=== PATIENT | female | born 1965 | race Caucasian/White ===

== ENCOUNTER → 2016-08-02 | Outpatient (CLI) | payer OTHER, BC | LOC: CIMAGING 12:32 | PROVIDERS: ATTEND Family Medicine | DX: M79.89 Other specified soft tissue disorders (principal) | CPT/HCPCS: 73610-PO ==

== ENCOUNTER → 2017-06-23 | Outpatient (CLI) | payer OTHER, BC | LOC: FIMAGING 13:55 | PROVIDERS: ATTEND Surgery | DX: N63.21 Unspecified lump in the left breast, upper outer quadrant (principal) ==

== ENCOUNTER → 2017-07-28 | Outpatient (CLI) | payer OTHER, BC | LOC: BHFA 10:00 | PROVIDERS: ATTEND Internal Medicine Cardiovascular Disease | DX: Z51.11 Encounter for antineoplastic chemotherapy (principal) ==

== ENCOUNTER → 2017-08-04 | Outpatient (CLI) | payer OTHER, BC ==
[~2017-08-04] MED LIST: GADOBUTROL 10 ML VIAL IVP ONE
== END ==
LOC: FIMAGING 08:17
PROVIDERS: ATTEND Internal Medicine Hematology & Oncology
DX: C50.112 Malignant neoplasm of central portion of left female breast (principal); N63.10 Unspecified lump in the right breast, unspecified quadrant
CPT/HCPCS: 0159T; A9585; C8908

== ENCOUNTER → 2017-08-07 | Outpatient (CLI) | payer OTHER, BC | LOC: FIMAGING 11:02 | PROVIDERS: ATTEND Surgery | DX: Z45.2 Encounter for adjustment and management of vascular access device (principal); J98.11 Atelectasis ==

== ENCOUNTER → 2017-08-23 | Outpatient (CLI) | payer OTHER, BC | LOC: FIMAGING 15:30 | PROVIDERS: ATTEND Internal Medicine Hematology & Oncology | DX: N83.202 Unspecified ovarian cyst, left side (principal); C50.112 Malignant neoplasm of central portion of left female breast ==

== ENCOUNTER 2017-09-14 07:44 | Outpatient (CLI) | payer OTHER, BC ==
[2017-09-14] MEDS ORDERED: GLUCAGON HCL 1 MG VIAL IVP PRN (08:03)
[2017-09-14] MEDS ORDERED: PROTAMINE SULFATE 50 MG/5 ML VIAL IVP PRN (08:03)
[2017-09-14] MEDS ORDERED: NALOXONE HCL 0.4 MG/ML INJ IVP PRN (08:03)
[2017-09-14] MEDS ORDERED: fentaNYL 100 MCG/2 ML INJ IVP PRN (08:03)
[2017-09-14] MEDS ORDERED: FLUMAZENIL 0.5 MG/5 ML MDV IVP PRN (08:03)
[2017-09-14] MEDS ORDERED: MIDAZOLAM 2 MG/2 ML VIAL IVP PRN (08:03)
[2017-09-14] MEDS ORDERED: MEPERIDINE 25 MG/ML SYR IVP PRN (08:03)
[2017-09-14] MEDS ORDERED: HEPARIN 10,000 UNIT/10 ML MDV (1,000 UNIT/ML) IVP PRN (08:03)
[2017-09-14] MEDS ORDERED: ALTEPLASE 2 MG VIAL IVP PRN (08:03)
[2017-09-14] MEDS ORDERED: NS 1,000 ML IV SCH (08:15)
[2017-09-14] MEDS ORDERED: GADOBUTROL 10 ML VIAL IVP ONE (08:41)
[2017-09-14] MEDS ORDERED: LIDOCAINE 1% 5 ML SDV ONE (08:42)
[2017-09-14] MEDS ORDERED: NA BICARBONATE 50 MEQ/50 ML VIAL ONE (08:42)
[2017-09-14] MEDS ORDERED: BUPIVACAINE 0.5% 30 ML SDV ONE (08:42)
--- NOTE | 2017-09-14 09:21 | PDGENHP ---
History & Physical Chief Complaint: abnl breast MRI Cardiorespiratory Assessment: lungs clear, RRR
--- NOTE | 2017-09-14 09:21 | PDPROPOC ---
Sedation Plan of Care Sedation Plan of Care: vital signs stable, mental status noted, patient educated of risks, benefits, alternatives, patient can tolerate sedation ASA Classification: ASA 1 Planned drugs: fentanyl, midazolam Mallampati Score: Class 2 Mallampati Reference Image: Patient passed 3-3-2 rule?: Yes
[2017-09-14] MEDS ORDERED: ONDANSETRON 4 MG/2 ML VIAL ONE ×3 (10:38→11:02)
[2017-09-14] MEDS ORDERED: ONDANSETRON 4 MG/2 ML VIAL IVP ONE (11:30)
[2017-09-14] MEDS ORDERED: ACETAMINOPHEN 325 MG TAB PO PRN (11:41)
[2017-09-14] MEDS ORDERED: ONDANSETRON 4 MG/2 ML VIAL IVP PRN (11:41)
[2017-09-14 12:59] VITALS: BP 110/74
== END 2017-09-14 11:45 | disposition home or self-care (01) ==
LOC: FIMAGING 07:44
PROVIDERS: ATTEND Internal Medicine Hematology & Oncology
PROC: 0HBT3ZX Excision of Right Breast, Percutaneous Approach, Diagnostic (ICD-10-PCS; principal; 2017-09-14)
DX: N60.11 Diffuse cystic mastopathy of right breast (principal); Z85.3 Personal history of malignant neoplasm of breast
CPT/HCPCS: 19085; 77065; 88305; 99152; 99153; A9585; J2250; J2405; J3010; J2310

== ENCOUNTER → 2017-12-15 | Outpatient (CLI) | payer OTHER, BC | LOC: FIMAGING 09:52 | PROVIDERS: ATTEND Internal Medicine Hematology & Oncology | DX: Z09 Encounter for follow-up examination after completed treatment for conditions other than malignant neoplasm (principal); Z98.890 Other specified postprocedural states; N83.292 Other ovarian cyst, left side; C50.919 Malignant neoplasm of unspecified site of unspecified female breast ==

== ENCOUNTER → 2017-12-15 | Outpatient (CLI) | payer OTHER, BC | LOC: BHFA 13:15 | PROVIDERS: ATTEND Internal Medicine Cardiovascular Disease | DX: Z51.11 Encounter for antineoplastic chemotherapy (principal) ==

== ENCOUNTER 2018-01-05 06:32 | Day surgery (SDC) | payer OTHER, BC ==
[2018-01-05] MEDS ORDERED: LR 1,000 ML IV ONE (06:51)
[2018-01-05] MEDS ORDERED: LIDOCAINE 1% 300 MG/30 ML SDV ONE ×2 (07:51→09:09)
[2018-01-05] MEDS ORDERED: MIDAZOLAM 2 MG/2 ML VIAL IVP ONE ×2 (08:42→09:20)
[2018-01-05] MEDS ORDERED: LIDOCAINE/PRILOCAINE 1 EACH CRTUBE TP ONE (08:53)
--- NOTE | 2018-01-05 08:55 | PDHPUP ---
History & Physical Update H&P update statement: This history and physical update is based on an assessment of the patient which was completed after admission or registration (within 24 hours), but prior to the surgery/procedure. H&P update: H&P reviewed & patient examined, changes noted (No change in condition. Will forego needle loc. Continue open R breast bx and left partial mastectomy with L SLNBx. Port will also be removed)
[2018-01-05] MEDS ORDERED: DIAZEPAM 5 MG TAB PO ONE (08:56)
[2018-01-05] MEDS ORDERED: BUPIVACAINE 0.5% 30 ML SDV ONE (09:09)
--- NOTE | 2018-01-05 09:16 | PDANEPAE ---
ANE History of Present Illness Left partial mastectomy with SLN. Right breast Bx. port removal ANE Past Medical History - Cardiovascular History Hx Hypertension: No Hx Arrhythmias: No Hx Chest Pain: No Hx Coronary Artery / Peripheral Vascular Disease: No Hx CHF / Valvular Disease: No Hx Palpitations: No Cardiovascular History Comment: rheumatic fever as child; - Pulmonary History Hx COPD: No Hx Asthma/Reactive Airway Disease: Yes Hx Recent Upper Respiratory Infection: No Hx Oxygen in Use at Home: No Hx Sleep Apnea: No Sleep Apnea Screening Result - Last Documented: Negative Pulmonary History Comment: "emotional asthma"; - Neurologic History Hx Cerebrovascular Accident: No Hx Seizures: No Hx Dementia: No - Endocrine History Hx Diabetes: No Endocrine History Comment: nodule on thyroid - Renal History Hx Renal Disorders: No - Liver History Hx Hepatic Disorders: No - Neurological & Psychiatric Hx Hx Neurological and Psychiatric Disorders: Yes Neurological / Psychiatric History Comment: depression; anxiety; insomnia; panic attacks; - Cancer History Hx Cancer: Yes Cancer History Comment: L breast CA; - Congenital Disorder History Hx Congenital Disorders: No - GI History Hx Gastrointestinal Disorders: Yes Gastrointestinal History Comment: GERD; - Other Health History Other Health History: denies - Chronic Pain History Chronic Pain: Yes (10/10 B legs) - Surgical History Prior Surgeries: L knee; hysterectomy partial; port placement; ANE Review of Systems Review of Systems: - Exercise capacity METS (RN): 4 METS - Systems Respiratory: Reports: wheezing (Emotional asthma FEV1 58%) Genitourinary: Reports: no symptoms Skin: Reports: no symptoms ANE Patient History - Allergies Allergies/Adverse Reactions: aspirin Allergy (Verified 12/15/17 14:44) EYES ITCH AND FACIAL FLUSHING Penicillins Allergy (Verified 09/14/17 13:06) Rash - Home Medications Home medications: home medication list seen and reviewed Home Medications: Aleve 220 MG (*) 440 mg PO PRN PRN 09/13/17 [Last Taken 09/13/17] Protonix 40mg (*) 40 mg PO DAILY 09/13/17 [Last Taken 01/04/18] Seroquel 25 mg (*) 25 mg PO HS 09/13/17 [Last Taken 01/04/18] Xanax 0.25 mg PO HS 09/13/17 [Last Taken 01/04/18] - NPO status NPO Status: no food or drink >8 hours NPO Since - Liquids (Date): 01/04/18 NPO Since - Liquids (Time): 22:00 NPO Since - Solids (Date): 01/04/18 NPO Since - Solids (Time): 23:30 - Anes Hx Anes Hx: no prior problems - Smoking Hx Smoking Status: Never smoked - Family Anes Hx Family Hx Anesthesia Complications: denies ANE Labs/Vital Signs - Vital Signs Blood Pressure: 104/73 Heart Rate: 88 Respiratory Rate: 16 O2 Sat (%): 95 Height: 160.02 cm Weight: 102.512 kg ANE Physical Exam - Airway Neck exam: FROM Mallampati Score: Class 2 Mouth exam: normal dental/mouth exam - Pulmonary Pulmonary: no rales or rhonchi, clear to auscultation, other (Increased exp phase) - Cardiovascular Cardiovascular: regular rate and rhythym, no murmur, rub, or gallop - ASA Status ASA Status: III ANE Anesthesia Plan Anesthesia Plan: GA w LMA
[2018-01-05] MEDS ORDERED: SCOPOLAMINE HYDROBROMIDE 1 MG/3 DAYS PATCH TD SCH (09:30)
[2018-01-05] MEDS ORDERED: METOCLOPRAMIDE 10 MG/2 ML VIAL ONE (10:16)
[2018-01-05] MEDS ORDERED: PROPOFOL/EMULSION 500 MG/50 ML BOTTLE IV ONE (10:16)
[2018-01-05] MEDS ORDERED: fentaNYL 250 MCG/5 ML INJ ONE (10:16)
[2018-01-05] MEDS ORDERED: GLYCOPYRROLATE 0.2 MG/1 ML VIAL ONE (10:16)
[2018-01-05] MEDS ORDERED: DEXAMETHASONE 4 MG/ML VIAL ONE (10:16)
[2018-01-05] MEDS ORDERED: PROPOFOL 200 MG/20 ML VIAL ONE ×2 (10:46→11:54)
[2018-01-05] MEDS ORDERED: PHENYLEPHRINE HCL 100 MCG/ML SYR ONE (11:19)
[2018-01-05] MEDS ORDERED: oxyCODONE IR 5 MG TAB PO PRN ×2 (12:33→12:48)
[2018-01-05] MEDS ORDERED: ONDANSETRON DISINTEGRATING 4 MG TAB PO PRN (12:33)
--- NOTE | 2018-01-05 12:33 | POSTOPPROG ---
Post Op Note Date of Operation: 01/05/18 Surgeon: Corbin Triplett Agent Broker: Daxa Portillo Anesthesia: LMA Pre-op Diagnosis: L breast cancer, right breast mass Post-op Diagnosis: same Procedure: R port a cath removal, Left Partial mastectomy and SLNBX, R breast exc bx Findings: hot node L axilla 5K Inf/Abcess present in the surg proc area at time of surgery?: No EBL: Minimal Specimen(s): Right breast tissue Left Breast partial mastectomy LAKSHMI Quadrant L SLNBx Rt port removal
[2018-01-05] MEDS ORDERED: HYDROCODONE/APAP 5/325 TAB PO PRN (12:48)
[2018-01-05] MEDS ORDERED: fentaNYL 100 MCG/2 ML INJ IVP PRN (12:48)
[2018-01-05] MEDS ORDERED: HYDROmorphONE/DILAUDID 2 MG/ML INJ IVP PRN (12:48)
[2018-01-05] MEDS ORDERED: NALOXONE HCL 0.4 MG/ML INJ IVP PRN (12:48)
[2018-01-05] MEDS ORDERED: DIAZEPAM 5 MG/ML 1 ML SYR IVP PRN (12:48)
[2018-01-05] MEDS ORDERED: ALBUTEROL 3 ML DEYVIAL IH PRN (12:48)
[2018-01-05] MEDS ORDERED: ONDANSETRON 4 MG/2 ML VIAL IVP PRN (12:48)
[2018-01-05] MEDS ORDERED: ACETAMINOPHEN 500 MG TAB PO PRN (12:48)
--- NOTE | 2018-01-05 12:50 | POSTANESTH ---
Post Anesthetic Evaluation Cardiovascular Status: Normal, Stable Respiratory Status: Similar to Pre-op Cond. Level of Consciousness/Mental Status: Can Participate in Eval Pain Control: Adequate, Prn Tx Ordered Nausea/Vomiting Control: Adequate, Prn Tx Ordered Complications Possibly Related to Anesthesia: None Noted
[2018-01-05] MEDS ORDERED: fentaNYL 100 MCG/2 ML INJ ONE (13:01)
[2018-01-05 14:10] VITALS: BP 122/87
[2018-01-08] MEDS ORDERED: PATCH REMOVAL 1 EA PATCH TD SCH (09:21)
--- NOTE | 2018-01-08 18:04 | GOP ---
DATE OF OPERATION: SURGEON: Corbin Triplett MD MOTORCOACH DRIVER: Daxa Portillo PA-C ANESTHESIA: General LMA anesthesia was used. PREOPERATIVE DIAGNOSIS: 1. Left breast cancer. 2. Right breast mass. POSTOPERATIVE DIAGNOSIS: PROCEDURE PERFORMED: 1. Open right breast biopsy. 2. Left partial mastectomy with sentinel node biopsy. FINDINGS: SPECIMENS: 1. Right breast mass. 2. Left partial mastectomy, long stitch lateral, short stitch superior, double stitch deep. 1. The sentinel nodes, 2 non-sentinel nodes and 1 hot sentinel node were obtained. 3. ESTIMATED BLOOD LOSS: Approximately 25 mL. INDICATIONS: This is a 52-year-old patient who presents to the hospital for elective treatment for r ight breast mass and known left breast cancer. She has had neoadjuvant treatment with HER-2/janeen targ eting of left breast cancer initially measuring over 5 cm, locally advanced. She is here for definit caden treatment. DESCRIPTION OF PROCEDURE: Patient was brought in the operating room after induction of sedation. Sh e had general LMA anesthesia in a supine position. Bilateral chest and breasts were prepped with chl orhexidine and draped out sterilely. Time-out procedure was then performed according to institutiona l standards. The initial addressing is of the right breast and the right breast was then infused with local anesth etic. An incision made at the top of the nipple-areolar complex at approximately 11 o'clock deepened with electrocautery. A mass approximately 1 cm in diameter was removed. It appears benign as a fib roadenoma. This is sent for pathology unoriented. The incision was closed in layers using 3-0 Polys orb and 4-0 Monocryl after ensuring hemostasis. Needle, instrument, and sponge counts were verified to be correct. Attention was then addressed to the left breast. Left sentinel node is initially obtained by going t hrough an incision on the inferior border of the axilla, deepened this with electrocautery. Clavipec jorge alberto fascia was then divided. [place] node was then identified using a gamma probe. After insurin g hot counts of this isolated node, which appears unaffected by cancer, a small node was sent for pat hology, along with several other nodes in the vicinity. The area was ensured to be hemostatic and cl osed in layers using 3-0 my Vicryl and 4-0 Monocryl in a running subcuticular fashion. The left breast was then addressed in the upper outer quadrant. Curvilinear incision was made after infusion of local anesthetic. This is made above the nipple-areolar complex approximately 12 to 3 o' clock. The palpable mass was then completely encircled by creating a skin flap laterally and superio rly, deepened this with electrocautery going down to the chest wall using sharp dissection and electr ocautery. After circumferentially going around the mass, the specimen was marked long stitch lateral short stitch superior, double stitch deep. The area is ensured to be hemostatic. No need for oncop lastic reconstruction was noted. The area was then closed using 3-0 Polysorb and 4-0 Monocryl. Dermabond was applied to all incisions . The patient awakened. LMA removed. She is taken to recovery in stable condition. No immediate c omplications. COMPLICATIONS: There were no complications. /[id number]/MODL
== END 2018-01-05 14:35 | disposition home or self-care (01) ==
LOC: F3EOP 06:32 → EDSTATUS 08:00 → F3EOP 14:35
PROVIDERS: ATTEND Surgery
DX: C50.412 Malignant neoplasm of upper-outer quadrant of left female breast (principal); D24.1 Benign neoplasm of right breast
CPT/HCPCS: 19101; 19302; A9520; J1100; J1642; J2250; J2370; J2704; J2765; J3010

== ENCOUNTER → 2018-04-18 | Outpatient (CLI) | payer OTHER, BC | LOC: FIMAGING 10:55 | PROVIDERS: ATTEND Surgery | DX: N63.21 Unspecified lump in the left breast, upper outer quadrant (principal); Z85.3 Personal history of malignant neoplasm of breast ==

== ENCOUNTER 2018-05-11 05:34 | Day surgery (SDC) | payer OTHER, BC ==
[2018-05-11] MEDS ORDERED: LIDOCAINE 1% 2 ML INJ ID PRN (06:10)
[2018-05-11] MEDS ORDERED: LR 1,000 ML IV ONE (06:10)
--- NOTE | 2018-05-11 06:54 | PDANEPAE ---
ANE History of Present Illness Breast mass ANE Past Medical History - Cardiovascular History Hx Hypertension: No Hx Arrhythmias: No Hx Chest Pain: No Hx Coronary Artery / Peripheral Vascular Disease: No Hx CHF / Valvular Disease: No Hx Palpitations: No Cardiovascular History Comment: rheumatic fever as child; - Pulmonary History Hx COPD: No Hx Asthma/Reactive Airway Disease: No Hx Recent Upper Respiratory Infection: No Hx Oxygen in Use at Home: No Hx Sleep Apnea: No Sleep Apnea Screening Result - Last Documented: Negative Pulmonary History Comment: "emotional asthma"; - Neurologic History Hx Cerebrovascular Accident: No Hx Seizures: No Hx Dementia: No - Endocrine History Hx Diabetes: No Endocrine History Comment: nodule on thyroid - Renal History Hx Renal Disorders: No - Liver History Hx Hepatic Disorders: No - Neurological & Psychiatric Hx Hx Neurological and Psychiatric Disorders: Yes Neurological / Psychiatric History Comment: depression/anxiety. insomnia. panic attacks - Cancer History Hx Cancer: Yes Cancer History Comment: L breast. LAST CHEMO 11/2017. - Congenital Disorder History Hx Congenital Disorders: No - GI History Hx Gastrointestinal Disorders: Yes Gastrointestinal History Comment: GERD - Other Health History Other Health History: NUMBNESS TINGLING LEGS/FEET - Chronic Pain History Chronic Pain: Yes (CORY KNEE'S/BACK) - Surgical History Prior Surgeries: LT PARTIAL MASTECTOMY/RT BREAST BX 01/05/18. L knee. hysterectomy partial. port placement ANE Review of Systems Review of Systems: - Exercise capacity METS (RN): 4 METS ANE Patient History - Allergies Allergies/Adverse Reactions: aspirin Allergy (Verified 12/15/17 14:44) EYES ITCH AND FACIAL FLUSHING Penicillins Allergy (Verified 09/14/17 13:06) Rash - Home Medications Home medications: home medication list seen and reviewed Home Medications: Aleve 220 MG (*) 440 mg PO PRN PRN 09/13/17 [Last Taken 05/04/18] Protonix 40mg (*) 40 mg PO HS 09/13/17 [Last Taken 05/11/18 03:30] Seroquel 25 mg (*) 25 mg PO HS 09/13/17 [Last Taken 05/10/18] Xanax 0.25 mg PO HS 09/13/17 [Last Taken 05/10/18] Wellbutrin Sr DAILY 05/08/18 [Last Taken 05/03/18] - NPO status NPO Status: no food or drink >8 hours NPO Since - Liquids (Date): 05/11/18 NPO Since - Liquids (Time): 03:30 NPO Since - Solids (Date): 05/10/18 NPO Since - Solids (Time): 19:30 - Anes Hx Anes Hx: no prior problems - Smoking Hx Smoking Status: Never smoked - Family Anes Hx Family Hx Anesthesia Complications: denies ANE Labs/Vital Signs - Vital Signs Blood Pressure: 139/96 Heart Rate: 81 Respiratory Rate: 11 O2 Sat (%): 95 Height: 160.02 cm Weight: 102.512 kg ANE Physical Exam - Airway Neck exam: FROM Mallampati Score: Class 2 Mouth exam: normal dental/mouth exam - Pulmonary Pulmonary: no respiratory distress - Cardiovascular Cardiovascular: regular rate and rhythym - ASA Status ASA Status: II ANE Anesthesia Plan Anesthesia Plan: GA w LMA
[2018-05-11] MEDS ORDERED: MIDAZOLAM 2 MG/2 ML VIAL IVP ONE (06:59)
[2018-05-11] MEDS ORDERED: BUPIVACAINE 0.5% 30 ML SDV ONE (07:00)
[2018-05-11] MEDS ORDERED: LIDOCAINE 1% 300 MG/30 ML SDV ONE (07:00)
[2018-05-11] MEDS ORDERED: GLYCOPYRROLATE 0.2 MG/1 ML VIAL ONE (07:09)
[2018-05-11] MEDS ORDERED: LIDOCAINE 2% 5 ML SDV ONE (07:10)
[2018-05-11] MEDS ORDERED: METOCLOPRAMIDE 10 MG/2 ML VIAL ONE (07:10)
[2018-05-11] MEDS ORDERED: fentaNYL 100 MCG/2 ML INJ ONE ×2 (07:11→09:08)
[2018-05-11] MEDS ORDERED: PROPOFOL 200 MG/20 ML VIAL ONE (07:12)
--- NOTE | 2018-05-11 07:20 | PDHPUP ---
History & Physical Update H&P update statement: This history and physical update is based on an assessment of the patient which was completed after admission or registration (within 24 hours), but prior to the surgery/procedure. H&P update: H&P reviewed & patient examined, no change in patient's condition since H&P completed
[2018-05-11] MEDS ORDERED: RANITIDINE 50 MG/2 ML VIAL ONE (07:51)
[2018-05-11] MEDS ORDERED: ONDANSETRON 4 MG/2 ML VIAL ONE (08:02)
[2018-05-11] MEDS ORDERED: DEXAMETHASONE 4 MG/ML VIAL ONE (08:02)
[2018-05-11] MEDS ORDERED: PHENYLEPHRINE HCL 100 MCG/ML SYR ONE (08:04)
[2018-05-11] MEDS ORDERED: HYDROmorphONE/DILAUDID 2 MG/ML INJ IVP PRN (08:16)
[2018-05-11] MEDS ORDERED: ONDANSETRON 4 MG/2 ML VIAL IVP PRN (08:16)
[2018-05-11] MEDS ORDERED: NALOXONE HCL 0.4 MG/ML INJ IVP PRN (08:16)
[2018-05-11] MEDS ORDERED: PROMETHAZINE HCL 25 MG/ML INJ IVP PRN (08:16)
--- NOTE | 2018-05-11 08:26 | POSTOPPROG ---
Post Op Note Date of Operation: 05/11/18 Surgeon: Corbin Triplett Jukebox Routeman: none Anesthesia: LMA Pre-op Diagnosis: breast ca Post-op Diagnosis: same Findings: clip in specimen Inf/Abcess present in the surg proc area at time of surgery?: No EBL: Minimal Specimen(s): left breast mass addition superior and deep margins
--- NOTE | 2018-05-11 08:50 | POSTANESTH ---
Post Anesthetic Evaluation Cardiovascular Status: Similar to Pre-Op Cond Respiratory Status: Similar to Pre-op Cond. Level of Consciousness/Mental Status: Alert and Oriented Pain Control: Adequate, Prn Tx Ordered Nausea/Vomiting Control: Adequate, Prn Tx Ordered Complications Possibly Related to Anesthesia: None Noted
[2018-05-11] MEDS: fentaNYL 100 MCG/2 ML INJ IVP PRN ×3 (09:09→09:47)
[2018-05-11] MEDS ORDERED: oxyCODONE IR 5 MG TAB PO PRN (10:11)
[2018-05-11 12:04] VITALS: BP 105/75
--- NOTE | 2018-05-11 17:42 | SUROPNOTE ---
[facility] Operative Report - Surgery Date of surgery: 05/11/2018 Indications for surgery: This is a 52-year-old patient had undergone neoadjuvant chemotherapy for left breast cancer. Initial wide local excision/ partial mastectomy failed to contain the pre chemotherapy marking clip. She is here for definitive identification and sampling of tissue around the clip with partial mastectomy. Preop diagnosis: Left breast cancer status post neoadjuvant chemotherapy and radiation Postop diagnosis: Same Procedure: Partial mastectomy, intraoperative localization with ultrasound Surgeon: Dr. Triplett Anesthesiologist: Dr. Hutson Specimen: Breast mass left long stitch lateral short stitch superior. Additional superior margin long stitch lateral short stitch superior. Additional deep margin with suture at the deep margin Procedure: The patient was brought to the operating room after induction of LMA anesthesia in a supine position her left chest and breast were prepped with chlorhexidine and draped sterilely. Time-out procedure was performed according to institutional standards. Local anesthetic was infused in the skin and subcutaneous tissues of the nipple-areolar as well as around the localized clip. Ultrasound was used to real localize the clip in real-time. And an incision was made above the nipple-areolar complex. Dissection was carried along Fausto's ligaments and encircling of the breast tissue containing the clip was performed. An additional margin was then obtained. Fluoroscopy was used to confirm clip removal. Formal x-ray was then obtained and radiology before sending this to pathology. The additional margins that were obtained were superior and deep. No identifiable pathologic tissue was noted. Needle instruments and sponges were verified to be correct and accounted for. The incision was then closed in layers using 3 0 Polysorb and 4 0 Monocryl. Dermabond was applied. The patient was awakened fully LMA was removed. She was taken to recovery room in stable condition no immediate complications
== END 2018-05-11 12:20 | disposition home or self-care (01) ==
LOC: FSGY 05:34
PROVIDERS: ATTEND Surgery
PROC: 0HBU0ZX Excision of Left Breast, Open Approach, Diagnostic (ICD-10-PCS; principal; 2018-05-11 07:15)
DX: C50.412 Malignant neoplasm of upper-outer quadrant of left female breast (principal); F32.9 Major depressive disorder, single episode, unspecified; F41.9 Anxiety disorder, unspecified; K21.9 Gastro-esophageal reflux disease without esophagitis; Z92.21 Personal history of antineoplastic chemotherapy; Z88.0 Allergy status to penicillin; Z90.710 Acquired absence of both cervix and uterus
CPT/HCPCS: J1100; J2250; J2370; J2405; J2704; J2765; J2780; J3010

== ENCOUNTER → 2018-06-26 | Outpatient (CLI) | payer OTHER, BC | LOC: BHFA 16:15 | PROVIDERS: ATTEND Internal Medicine Cardiovascular Disease | DX: Z51.11 Encounter for antineoplastic chemotherapy (principal) ==